=== PATIENT | female | born 1950 | race Hispanic/Latino ===

== ENCOUNTER 2017-10-01 09:16 | Day surgery (SDC) | payer OTHER, MEDICARE ==
[~2017-10-01] VITALS: Ht 157.5 cm; Wt 96.1 kg
[2017-10-01 09:16] VITALS: BP 159/69
[~2017-10-01 09:16] MED LIST: ALEN70TA47 PO; DULO60CA63 PO; GLIP1TAB6 PO; LINA5TAB PO; LISI2.5T2 PO; PRAV20TA4 PO; SODIUM CHLORIDE 0.9% 1000ML 1,000 ML IV ONE
[2017-10-01] MEDS ORDERED: PROPOFOL 10 MG/ML 20ML VIAL IV ONE ×2 (09:49)
== END 2017-10-01 11:05 | disposition home or self-care (01) ==
LOC: DAH 09:16
PROVIDERS: ATTEND Internal Medicine Gastroenterology
DX: Z12.11 Encounter for screening for malignant neoplasm of colon (principal); I10 Essential (primary) hypertension; E78.5 Hyperlipidemia, unspecified; D64.89 Other specified anemias; E11.9 Type 2 diabetes mellitus without complications; G43.909 Migraine, unspecified, not intractable, without status migrainosus; M19.90 Unspecified osteoarthritis, unspecified site; F32.9 Major depressive disorder, single episode, unspecified; Z79.899 Other long term (current) drug therapy; Z79.82 Long term (current) use of aspirin; Z79.84 Long term (current) use of oral hypoglycemic drugs
CPT/HCPCS: 82948 ×2; 93005; A4606; G0121; J2704 ×2; J7030

== ENCOUNTER → 2018-07-29 | Outpatient (CLI) | payer OTHER, MEDICARE ==
[~2018-07-29] MED LIST changes: +ALEN70TA10 PO; -ALEN70TA47 PO; -SODIUM CHLORIDE 0.9% 1000ML 1,000 ML IV ONE
== END | disposition home or self-care (01) ==
LOC: RAH 14:14
PROVIDERS: ATTEND Family Medicine
DX: Z12.31 Encounter for screening mammogram for malignant neoplasm of breast (principal)
CPT/HCPCS: 77067

== ENCOUNTER → 2020-11-22 | Outpatient (CLI) | payer OTHER, MEDICARE ==
[~2020-11-22] MED LIST changes: -ALEN70TA10 PO; +ALEN70TA80 PO; -DULO60CA63 PO; +DULO60CA64 PO
== END | disposition home or self-care (01) ==
LOC: RAH 12:54
PROVIDERS: ATTEND Family Medicine
DX: Z12.31 Encounter for screening mammogram for malignant neoplasm of breast (principal)
CPT/HCPCS: 77067

== ENCOUNTER → 2021-11-26 | Outpatient (CLI) | payer OTHER, MEDICARE ==
[~2021-11-26] MED LIST changes: +LISI2.5T13 PO; -LISI2.5T2 PO
== END | disposition home or self-care (01) ==
LOC: RAH 09:56
PROVIDERS: ATTEND Family Medicine
DX: Z12.31 Encounter for screening mammogram for malignant neoplasm of breast (principal)
CPT/HCPCS: 77067

== ENCOUNTER 2023-11-25 10:40 | Emergency (ER) | payer OTHER, MEDICARE ==
[~2023-11-25] VITALS: Ht 152.4 cm; Wt 90.7 kg
[~2023-11-25 10:40] MED LIST changes: -ALEN70TA80 PO; -GLIP1TAB6 PO; -LINA5TAB PO; -PRAV20TA4 PO
[2023-11-25 13:42] VITALS: BP 144/74; PULSE 99; RESP 18; O2SAT 98
== END 2023-11-25 13:43 | disposition home or self-care (01) ==
LOC: EDH 10:40
DX: S52.592A Other fractures of lower end of left radius, initial encounter for closed fracture (principal); I10 Essential (primary) hypertension; E11.9 Type 2 diabetes mellitus without complications; E78.00 Pure hypercholesterolemia, unspecified; Z79.899 Other long term (current) drug therapy; Z98.890 Other specified postprocedural states; W01.0XXA Fall on same level from slipping, tripping and stumbling without subsequent striking against object, initial encounter; Y93.89 Activity, other specified; Y92.89 Other specified places as the place of occurrence of the external cause; Y99.8 Other external cause status
CPT/HCPCS: 29125; 73110

== ENCOUNTER → 2024-01-14 | Outpatient (CLI) | payer OTHER, MEDICARE | END | disposition home or self-care (01) | LOC: RAH 11:24 | PROVIDERS: ATTEND Family Medicine | DX: Z12.31 Encounter for screening mammogram for malignant neoplasm of breast (principal); R92.30 Dense breasts, unspecified | CPT/HCPCS: 77067 ==

== ENCOUNTER → 2025-01-17 | Outpatient (CLI) | payer OTHER, MEDICAID ==
[~2025-01-17] MED LIST changes: +CYCL-309 PO
--- NOTE | 2025-01-18 12:18 | HMCIMG ---
DIGITAL BILATERAL SCREENING MAMMOGRAM WITH TOMOSYNTHESIS, DATED 01/17/2025 1:00 AM CDT Technique: The digital mammographic examination of both breasts in craniocaudal and mediolateral oblique views along with R2 CAD was obtained. Tomosynthesis of both breasts was obtained. History: This is a 74 years year-old female for 3D screening mammogram. Patient has no family history of breast cancer. Patient has no complaint Reference:None available. Breast composition: Breast composition A: The breasts are almost entirely fatty. Finding: The digital mammographic examination of both breasts in craniocaudal and mediolateral oblique view along with R2 CAD demonstrates both breasts involutional fatty changes. There there is solitary occasional scattered macrocalcifications in both breasts. Is no evidence of any dendritic mass, cluster microcalcification or architectural distortion. The Tomosynthesis demonstrates no lesion seen. The retromammary fat appears to be normal. IMPRESSION: NO RADIOGRAPHIC EVIDENCE OF MALIGNANT CHANGES. WE WOULD RECOMMEND ANNUAL FOLLOW UP WITH TOMOSYNTHESIS UNLESS OTHERWISE CLINICALLY INDICATED. FINAL ASSESSMENT: ACR: BI-RAD - 1. Negative: Nothing to comment upon. Management: Routine mammography screening. Likelihood of Cancer: Essentially 0% likelihood of malignancy. NOTE: IF A WORK-UP OF THIS PATIENT LEADS TO A BIOPSY, PLEASE FORWARD A COPY OF THE PATHOLOGY REPORT TO OUR OFFICE REQUIRED BY [employer] APRIL 13, 1994. A NEGATIVE MAMMOGRAM SHOULD NOT PRECLUDE BIOPSY OF A CLINICALLY PALPABLE SUSPICIOUS MASS, 10% OF BREAST CANCERS ARE MAMMOGRAPHICALLY OCCULT. THIS MAMMOGRAPHY FACILITY IS FULLY ACCREDITED BY THE [employer]OD AND [employer]UG [employer] (FDA). THANK YOU FOR THIS REFERRAL.
== END | disposition home or self-care (01) ==
LOC: RAH 10:58
PROVIDERS: ATTEND Family Medicine
DX: Z12.31 Encounter for screening mammogram for malignant neoplasm of breast (principal)
CPT/HCPCS: 77067